=== PATIENT | male | born 2000 | race Hispanic/Latino ===

== ENCOUNTER 2025-01-13 09:11 | Emergency (ER) | payer SELFPAY ==
[~2025-01-13] VITALS: Ht 160 cm; Wt 64.5 kg
[2025-01-13 09:15] VITALS: PULSE 56; RESP 18; TEMP 98.4; O2SAT 96
[2025-01-13] MEDS ORDERED: BACTRIM DS TAB1 EACH PO (09:32)
== END 2025-01-13 09:39 | disposition home or self-care (01) ==
LOC: FSED 09:17
DX: L60.0 Ingrowing nail (principal)
CPT/HCPCS: 99284